=== PATIENT | female | born 1990 | race Caucasian/White ===

== ENCOUNTER → 2017-02-05 | Outpatient (REF) | payer OTHER ==
[~2017-02-05] MED LIST: ACET50TA PO; DOCU10ELUD PO; IBUP600T26 PO; MIREIUD IU; PRENTAB74 PO
== END ==
LOC: M LAB REF 14:27
PROVIDERS: ATTEND Surgery
DX: D17.1 Benign lipomatous neoplasm of skin and subcutaneous tissue of trunk (principal)

== ENCOUNTER 2017-04-10 13:43 | Outpatient (CLI) | payer OTHER ==
[~2017-04-10] VITALS: Ht 154.9 cm; Wt 67.1 kg
[2017-04-10] MEDS ORDERED: NS 1,000 ML IV ONE (14:00)
[2017-04-10] MEDS ORDERED: PROPOFOL 200 MG/20 ML VIAL As Ordered ONE ×2 (14:20→14:22)
[2017-04-10] MEDS ORDERED: LIDOCAINE 2% INJ 100 MG/5 ML SDV (FOR ANES.) As Ordered ONE (14:22)
--- NOTE | 2017-04-10 14:28 | ROOR ---
Patient Name: Celeste Young Procedure Date: 04/10/2017 2:10 PM Date of : 1990 Age: 26 Room: [facility] Gender: Female Note Status: Finalized Procedure: Upper GI endoscopy Indications: Epigastric abdominal pain, Generalized abdominal pain Providers: Yung FELDER MD Referring MD: 1. No Referring Physician 1. No Referring Physician, Admin. Requesting Provider: Medicines: Monitored Anesthesia Care Complications: No immediate complications. Procedure: Pre-Anesthesia Assessment: - The heart rate, respiratory rate, oxygen saturations, blood pressure, adequacy of pulmonary ventilation, and response to care were monitored throughout the procedure. The Endoscope was introduced through the mouth, and advanced to the second part of duodenum. The upper GI endoscopy was accomplished without difficulty. The patient tolerated the procedure well. Findings: The esophagus was normal. The stomach was normal. The examined duodenum was normal. Impression: - Normal esophagus. - Normal stomach. - Normal examined duodenum. - No specimens collected. Recommendation: - Observe patient's clinical course. - Continue present medications. Yung Felder MD Yung FELDER MD 04/10/2017 2:27:45 PM This report has been signed electronically. Number of Addenda: 0 Note Initiated On: 04/10/2017 2:10 PM Estimated Blood Loss: Estimated blood loss: none.
--- NOTE | 2017-04-10 14:46 | ROOR ---
Patient Name: Celeste Young Procedure Date: 04/10/2017 2:11 PM Date of : 1990 Age: 26 Room: [facility] Gender: Female Note Status: Finalized Procedure: Colonoscopy Indications: High risk colon cancer surveillance: Personal history of colonic polyps, Last colonoscopy: September 2013, Incidental abdominal pain noted Providers: uYng FELDER MD Referring MD: 1. No Referring Physician 1. No Referring Physician, Admin. Requesting Provider: Medicines: Monitored Anesthesia Care Complications: No immediate complications. Procedure: Pre-Anesthesia Assessment: - The heart rate, respiratory rate, oxygen saturations, blood pressure, adequacy of pulmonary ventilation, and response to care were monitored throughout the procedure. The Colonoscope was introduced through the anus and advanced to 5 cm into the ileum. The colonoscopy was performed without difficulty. The patient tolerated the procedure well. The quality of the bowel preparation was good. Findings: The perianal and digital rectal examinations were normal. A scar was found in the cecum. There was no evidence of the previous polyp. No residual polyp tissue was seen. The colon (entire examined portion) was redundant. The entire examined colon appeared normal on direct and retroflexion views. Impression: - Surgical scar in the cecum related to previous extended appendectomy. - The colon is a bit redundant, but otherwise is normal on direct and retroflexion views. - Small (likely insignificant) internal hemorrhoids noted. - No specimens collected. Recommendation: - Repeat colonoscopy in 5 years for surveillance based on personal history of previous adenomatous polyps. - Continue present medications. - Use fiber, for example Citrucel, Fibercon, Konsyl or Metamucil. Yung Felder MD Yung FELDER MD 04/10/2017 2:46:07 PM This report has been signed electronically. Number of Addenda: 0 Note Initiated On: 04/10/2017 2:11 PM Estimated Blood Loss: Estimated blood loss: none.
[2017-04-10 15:07] VITALS: BP 118/83
== END 2017-04-10 15:08 | disposition home or self-care (01) ==
LOC: M OPP 13:43
PROVIDERS: ATTEND Internal Medicine Gastroenterology
DX: R10.84 Generalized abdominal pain (principal); Z86.010 Personal history of colon polyps; Q43.8 Other specified congenital malformations of intestine; L90.5 Scar conditions and fibrosis of skin; K64.8 Other hemorrhoids; R10.13 Epigastric pain; J45.909 Unspecified asthma, uncomplicated; G43.909 Migraine, unspecified, not intractable, without status migrainosus; Z79.899 Other long term (current) drug therapy; Z80.0 Family history of malignant neoplasm of digestive organs; Z80.3 Family history of malignant neoplasm of breast; Z80.41 Family history of malignant neoplasm of ovary

== ENCOUNTER → 2018-09-10 | Outpatient (REF) | payer BC ==
[~2018-09-10] MED LIST changes: +MIRE1IUD IU; -MIREIUD IU
== END ==
LOC: M LAB REF 17:05
PROVIDERS: ATTEND Advanced Practice Midwife
DX: Z12.4 Encounter for screening for malignant neoplasm of cervix (principal)

== ENCOUNTER → 2019-04-08 | Outpatient (CLI) | payer BC ==
[~2019-04-08] MED LIST changes: -ACET50TA PO; -DOCU10ELUD PO; +DOCU5LIQ PO; +MAPA500T17 PO
--- NOTE | 2019-04-08 16:55 | REP ---
The the patient had renal removed enlarged but has not had a. Since. The studies performed transabdominal, endovaginal and Doppler ultrasound assessment. The bladder is adequately distended. The uterus is anteverted and normal size measuring 7.8 x 3.9 x 3.6 cm. The endometrium is not thickened measuring five - 7 mm. Right ovary: The right ovary measures 3.9 x 2.0 by 3.1 cm and is normal size. There is a 2.8 x 1.5 x 2.4 cm right ovarian cyst. There is right ovarian vascular flow with the Doppler resistive index in the parenchymal arteries measuring 0.36. Left ovary: Left ovary measures 2.6 x 2.4 x 2.6 cm and is normal size. There is a 1.4 cm left ovarian follicle. There is vascular flow with the Doppler resistive index in the parenchymal arteries measuring 0.40. Impression: There is a 2.8 cm right ovarian cyst. There is a 1.4 cm left ovarian follicle. There is vascular flow in both ovaries. The uterus and endometrium are unremarkable. Electronically Signed by Joe Yu MD 04/08/2019 04:47 P
== END ==
LOC: M RAD 15:46
PROVIDERS: ATTEND Advanced Practice Midwife
DX: N91.1 Secondary amenorrhea (principal)

== ENCOUNTER → 2019-04-20 | Outpatient (CLI) | payer BC ==
[2019-04-20 12:54] LABS: HCG, SERUM QUALITATIVE NEGATIVE (NEGATIVE)
[2019-04-20 13:05] LABS: CORTISOL AM 10.4 UG/DL (4.3-22.4); FOLLICLE STIMULATING HORMONE 7.5 mIU/mL; FREE T4 0.93 NG/DL (0.76-1.46); LUTEINIZING HORMONE 2.7 mIU/mL; PROGESTERONE 0.73 NG/ML; PROLACTIN 14.7 NG/ML
[2019-04-23 08:39] LABS: 17 HYDROXY PROGESTERONE 23 ng/dL (.); TESTOSTERONE FREE (DIRECT) 1.6 pg/mL (0.0-4.2)
== END ==
LOC: M LRY 08:22
PROVIDERS: ATTEND Advanced Practice Midwife
DX: N91.1 Secondary amenorrhea (principal)

== ENCOUNTER → 2019-05-17 | Outpatient (REF) | payer BC | LOC: M SFHCLERA 11:48 | PROVIDERS: ATTEND Physician Assistant | DX: J02.9 Acute pharyngitis, unspecified (principal) ==

== ENCOUNTER → 2019-11-25 | Outpatient (CLI) | payer BC ==
[2019-11-25 12:17] LABS: FREE T4 0.9 NG/DL (0.76-1.46); THYROID STIMULATING HORMONE 2.96 uIU/ML (0.358-3.740)
== END ==
LOC: M LAB 11:02
PROVIDERS: ATTEND Internal Medicine Gastroenterology
DX: K58.2 Mixed irritable bowel syndrome (principal)

== ENCOUNTER → 2019-12-09 | Outpatient (CLI) | payer BC ==
[~2019-12-09] MED LIST changes: +E-Z-PAQUE 96% w/w SUSP 176GM BTL As Ordered ONE
--- NOTE | 2019-12-13 17:43 | REP ---
Small bowel follow-through The procedure was performed under the direct supervision of Dr. Choudhary. The images were reviewed with Dr. Choudhary. The print press operator film shows no organomegaly or pathological masses. The intestinal gas pattern is nonspecific. There are bowel sutures noted in the right mid abdomen. Liquid barium was administered and the barium column was followed through the small bowel to the level of the terminal ileum. Small bowel transit time is approximately 1 hour . During fluoroscopy gentle palpation shows all loops are freely movable and pliable. There are no fixed or angulated loops. The small bowel mucosal pattern is normal in course and caliber. There is no transition to suggest a partial small bowel obstruction. Spot filming of the terminal ileum shows it to be unremarkable. Impression: Small bowel follow-through examination within normal limits. 0.6 minutes of fluoro time was utilized for this procedure. Electronically Signed by VIELKA Payne 12/09/2019 03:12 P Electronically Signed by Joe Choudhary MD 12/13/2019 05:34 P
== END ==
LOC: M RAD 08:52
PROVIDERS: ATTEND Internal Medicine Gastroenterology
DX: K58.2 Mixed irritable bowel syndrome (principal)

== ENCOUNTER → 2020-04-18 | Outpatient (CLI) | payer BC ==
[~2020-04-18] MED LIST changes: -E-Z-PAQUE 96% w/w SUSP 176GM BTL As Ordered ONE; +PHEN-239 PO; +SUMA50TA2 PO; +TOPI50TA9 PO
== END ==
LOC: M LABSMTC 13:12
PROVIDERS: ATTEND Anesthesiology
DX: Z01.812 Encounter for preprocedural laboratory examination (principal); Z20.828 Contact with and (suspected) exposure to other viral communicable diseases
CPT/HCPCS: C9803; U0003

== ENCOUNTER 2020-04-23 13:32 | Day surgery (SDC) | payer BC ==
[~2020-04-23] VITALS: Ht 154.9 cm; Wt 67.1 kg
[2020-04-23] MEDS ORDERED: NS 1,000 ML IV ONE (14:30)
[2020-04-23] MEDS ORDERED: LIDOCAINE 2% 100MG/5ML SDV (FOR ANES.) As Ordered ONE (14:53)
[2020-04-23] MEDS ORDERED: propofoL 500 MG/50 ML VIAL As Ordered ONE (14:54)
[2020-04-23] MEDS ORDERED: fentaNYL 100 MCG/2 ML INJECTION (J3010) As Ordered ONE (14:54)
--- NOTE | 2020-04-23 15:25 | ROOR ---
Patient Name: Celeste Young Procedure Date: 04/23/2020 2:59 PM Date of : 1990 Age: 29 Room: [facility] Gender: Female Note Status: Finalized Procedure: Upper GI endoscopy Indications: Abdominal pain Providers: Yung FELDER MD Referring MD: Keke Israel Requesting Provider: Medicines: Monitored Anesthesia Care Complications: No immediate complications. Procedure: Pre-Anesthesia Assessment: - The heart rate, respiratory rate, oxygen saturations, blood pressure, adequacy of pulmonary ventilation, and response to care were monitored throughout the procedure. The Endoscope was introduced through the mouth, and advanced to the second part of duodenum. The upper GI endoscopy was accomplished without difficulty. The patient tolerated the procedure well. Findings: The esophagus was normal. The stomach was normal. The examined duodenum was normal. Biopsies for histology were taken with a cold forceps in the second portion of the duodenum for evaluation of celiac disease. Biopsies were taken with a cold forceps in the gastric antrum for Helicobacter pylori testing. Impression: - Normal esophagus. - Normal stomach. - Normal examined duodenum. - Biopsies were taken with a cold forceps for evaluation of celiac disease. - Biopsies were taken with a cold forceps for Helicobacter pylori testing. Recommendation: - Observe patient's clinical course. - Telephone endoscopist for pathology results in 2 weeks. Yung Felder MD Yung FELDER MD 04/23/2020 3:24:52 PM Electronically signed by Yung FELDER MD Number of Addenda: 0 Note Initiated On: 04/23/2020 2:59 PM Estimated Blood Loss: Estimated blood loss: none.
--- NOTE | 2020-04-23 15:38 | ROOR ---
Patient Name: Celeste Young Procedure Date: 04/23/2020 3:03 PM Date of : 1990 Age: 29 Room: [facility] Gender: Female Note Status: Finalized Procedure: Colonoscopy Indications: Suspected irritable bowel syndrome, Mixed irritable bowel syndrome Providers: Yung FELDER MD Referring MD: Keke Israel Requesting Provider: Medicines: Monitored Anesthesia Care Complications: No immediate complications. Procedure: Pre-Anesthesia Assessment: - The heart rate, respiratory rate, oxygen saturations, blood pressure, adequacy of pulmonary ventilation, and response to care were monitored throughout the procedure. The Colonoscope was introduced through the anus and advanced to 15 cm into the ileum. The colonoscopy was performed without difficulty. The patient tolerated the procedure well. The quality of the bowel preparation was good. Findings: The perianal and digital rectal examinations were normal. The terminal ileum appeared normal. The colon (entire examined portion) appeared normal. Small Internal Hemorrhoids. Biopsies for histology were taken with a cold forceps from the entire colon for evaluation of microscopic colitis. Impression: - The examined portion of the ileum was normal. - The entire colon is normal. - Small Internal Hemorrhoids. - Biopsies were taken with a cold forceps from the entire colon for evaluation of microscopic colitis. - (Irritable Bowel Syndrome/IBS suspected.) Recommendation: - Use fiber, for example Citrucel, Fibercon, Konsyl or Metamucil. - Continue present medications. - Telephone endoscopist for pathology results in 2 weeks. Yung Felder MD Yung FELDER MD 04/23/2020 3:37:10 PM Electronically signed by Yung FELDER MD Number of Addenda: 0 Note Initiated On: 04/23/2020 3:03 PM Estimated Blood Loss: Estimated blood loss: none.
[2020-04-23 16:03] VITALS: BP 140/90
== END 2020-04-23 16:05 | disposition home or self-care (01) ==
LOC: M OPP 13:32
PROVIDERS: ATTEND Internal Medicine Gastroenterology
DX: K58.2 Mixed irritable bowel syndrome (principal); R10.9 Unspecified abdominal pain; R19.4 Change in bowel habit; K64.8 Other hemorrhoids; Z80.0 Family history of malignant neoplasm of digestive organs; Z79.899 Other long term (current) drug therapy; Z79.3 Long term (current) use of hormonal contraceptives
CPT/HCPCS: 43239; 45380; 88305; J3010

== ENCOUNTER → 2021-06-27 | Outpatient (CLI) | payer BC ==
[2021-06-27 17:54] LABS: ALT/SGPT 47 U/L (12-78); BILIRUBIN,TOTAL 0.4 MG/DL (0.2-1.0); GLOMERULAR FILTRATION RATE > 60.0 (>60); LDH LACTATE DEHYDROGENASE 163 U/L (84-246); URIC ACID 2.6 MG/DL (2.6-6.0)
[2021-06-27 17:57] LABS: HEMATOCRIT 36.8 % (36.0-47.0); HEMOGLOBIN 12.1 g/dl (12.0-15.5); MEAN CORPUSCULAR HEMOGLOBIN 29.2 pg (27.0-33.0); MEAN CORPUSCULAR HGB CONC 32.9 g/dl (32.0-36.5); MEAN CORPUSCULAR VOLUME 88.9 fl (80.0-96.0); PLATELET COUNT, AUTOMATED 308 10^3/uL (150-450); RED BLOOD COUNT 4.14 10^6/uL (4.00-5.40); WHITE BLOOD COUNT 8.3 10^3/uL (4.0-10.0)
[2021-06-27 18:44] LABS: HEPATITIS C VIRUS ABY INDEX 0.1 INDEX (<0.8); HIV 1&2 SCREEN CENTAUR NEGATIVE (NEGATIVE)
[2021-06-27 20:30] LABS: GC DNA AMPLIFICATION NEGATIVE (NEGATIVE)
== END ==
LOC: M PLALAB 14:55
PROVIDERS: ATTEND Advanced Practice Midwife
DX: Z34.91 Encounter for supervision of normal pregnancy, unspecified, first trimester (principal)

== ENCOUNTER → 2021-08-26 | Outpatient (CLI) | payer BC | LOC: M WHC 15:02 | PROVIDERS: ATTEND Advanced Practice Midwife | DX: Z34.81 Encounter for supervision of other normal pregnancy, first trimester (principal); Z3A.13 13 weeks gestation of pregnancy ==

== ENCOUNTER → 2021-09-18 | Outpatient (CLI) | payer BC | LOC: M WHC 15:01 | PROVIDERS: ATTEND Advanced Practice Midwife | DX: Z34.92 Encounter for supervision of normal pregnancy, unspecified, second trimester (principal); Z3A.22 22 weeks gestation of pregnancy ==

== ENCOUNTER → 2021-10-24 | Outpatient (CLI) | payer BC ==
[2021-10-24 13:11] LABS: HEMATOCRIT 33.7 % (36.0-47.0); HEMOGLOBIN 11.4 g/dl (12.0-15.5); MEAN CORPUSCULAR HEMOGLOBIN 30.4 pg (27.0-33.0); MEAN CORPUSCULAR HGB CONC 33.8 g/dl (32.0-36.5); MEAN CORPUSCULAR VOLUME 89.9 fl (80.0-96.0); PLATELET COUNT, AUTOMATED 311 10^3/uL (150-450); RED BLOOD COUNT 3.75 10^6/uL (4.00-5.40); WHITE BLOOD COUNT 10.8 10^3/uL (4.0-10.0)
== END ==
LOC: M PLALAB 09:31
PROVIDERS: ATTEND Advanced Practice Midwife
DX: Z36.89 Encounter for other specified antenatal screening (principal)

== ENCOUNTER → 2021-11-13 | Outpatient (CLI) | payer BC | LOC: M LAB 08:33 | PROVIDERS: ATTEND Advanced Practice Midwife | DX: O99.810 Abnormal glucose complicating pregnancy (principal); Z3A.00 Weeks of gestation of pregnancy not specified ==

== ENCOUNTER → 2021-12-20 | Outpatient (CLI) | payer BC | LOC: M WHC 12:48 | PROVIDERS: ATTEND Advanced Practice Midwife | DX: O26.843 Uterine size-date discrepancy, third trimester (principal); Z3A.35 35 weeks gestation of pregnancy ==

== ENCOUNTER → 2021-12-24 | Outpatient (REF) | payer BC | LOC: M SFHCWAGY 17:03 | PROVIDERS: ATTEND Obstetrics & Gynecology | DX: Z87.59 Personal history of other complications of pregnancy, childbirth and the puerperium (principal) ==

== ENCOUNTER → 2024-04-27 | Outpatient (CLI) | payer BC ==
[~2024-04-27] MED LIST changes: +ACET-683 PO; +IBUP80TA PO; +MULTTAB20 PO; +TOPI-21 PO; -TOPI50TA9 PO
[2024-04-27 18:45] LABS: BASO % 0.4 % (0.0-1.0); EOS # 0.3 10^3/uL (0.0-0.5); EOS % 4.1 % (0.0-3.0); HEMATOCRIT 39.3 % (36.0-47.0); HEMOGLOBIN 12.4 g/dl (12.0-15.5); LYMPH # 2.2 10^3/uL (1.5-5.0); LYMPH % 31.1 % (24.0-44.0); MEAN CORPUSCULAR HEMOGLOBIN 28.8 pg (27.0-33.0); MEAN CORPUSCULAR HGB CONC 31.6 g/dl (32.0-36.5); MEAN CORPUSCULAR VOLUME 91.4 fl (80.0-96.0); MONO # 0.4 10^3/uL (0.0-0.8); MONO % 5.1 % (2.0-8.0); NEUTROPHILS # 4.1 10^3/uL (1.5-8.5); NEUTROPHILS % 58.9 % (36.0-66.0); PLATELET COUNT, AUTOMATED 351 10^3/uL (150-450)
[2024-04-27 18:54] LABS: ERYTHROCYTE SEDIMENTATION RATE 17 mm/hr (0-20)
[2024-04-27 19:20] LABS: URIC ACID 3.8 MG/DL (3.1-7.8)
[2024-04-27 19:22] LABS: C REACTIVE PROTEIN QUANTITATIV < 0.40 MG/DL (<1.0); RHEUMATOID FACTOR QUANT < 3.5 IU/ML (<14)
[2024-04-27 19:23] LABS: ALBUMIN 3.6 G/DL (3.2-5.2); ALKALINE PHOSPHATASE 101 U/L (35-104); ALT/SGPT 57 U/L (7.0-40); AST/SGOT 22 U/L (<34); BILIRUBIN,TOTAL 0.5 MG/DL (0.3-1.2); BLOOD UREA NITROGEN 17 MG/DL (9-23); CALCIUM LEVEL 9.1 MG/DL (8.5-10.1); CARBON DIOXIDE LEVEL 28 MMOL/L (20-31); CHLORIDE LEVEL 107 MMOL/L (98-107); CHOLESTEROL LEVEL 200 MG/DL (<200); CHOLESTEROL RISK RATIO 3.09 (<5); CREATININE FOR GFR 0.61 MG/DL (0.55-1.30); GLOMERULAR FILTRATION RATE > 60.0 (>60); GLUCOSE, FASTING 86 MG/DL (60-100); HDL CHOLESTEROL 64.7 MG/DL (>40); LDL CHOLESTEROL 117.5 MG/DL (<100); NON-HDL-C 135.3 MG/DL; POTASSIUM SERUM 4.6 MMOL/L (3.5-5.1); SODIUM LEVEL 139 MMOL/L (136-145); TOTAL PROTEIN 6.8 G/DL (5.7-8.2); TRIGLYCERIDES LEVEL 89 MG/DL (<150)
[2024-04-29 14:07] LABS: ANA SCREEN, IFA NEGATIVE (NEGATIVE)
[2024-04-30 01:41] LABS: CYCLIC CITRULLINATED PEPTIDE < 16 UNITS (<20)
== END ==
LOC: M LRY 13:12
PROVIDERS: ATTEND Physician Assistant
DX: E66.9 Obesity, unspecified (principal)

== ENCOUNTER → 2024-05-31 | Outpatient (CLI) | payer BC ==
[2024-05-31 18:42] LABS: IRON (FE) 61 UG/DL (50-170); PERCENT SATURATION 17.4 % (13.2-45.0); TOTAL IRON BINDING CAPACITY 351 UG/DL (250-425)
[2024-05-31 18:44] LABS: FERRITIN 22.3 NG/ML (7.3-270.7); THYROID STIMULATING HORMONE 4.608 uIU/ML (0.55-4.78)
[2024-05-31 18:45] LABS: VITAMIN B12 LEVEL 712 PG/ML (211-911)
[2024-05-31 19:02] LABS: HEPATITIS B SURFACE ANTIGEN NEGATIVE (NEGATIVE)
[2024-05-31 19:22] LABS: HEPATITIS B CORE ANTIBODY IGM NEGATIVE (NEGATIVE)
[2024-05-31 19:23] LABS: HEPATITIS C VIRUS ABY INDEX 0.17 INDEX (<0.8)
== END ==
LOC: M RAD 17:25
PROVIDERS: ATTEND Physician Assistant
DX: M25.541 Pain in joints of right hand (principal); M25.542 Pain in joints of left hand; R53.83 Other fatigue

== ENCOUNTER → 2024-07-05 | Outpatient (CLI) | payer BC | LOC: M RAD 08:45 | PROVIDERS: ATTEND Physician Assistant | DX: R74.01 Elevation of levels of liver transaminase levels (principal) ==

== ENCOUNTER → 2024-08-26 | Outpatient (CLI) | payer BC | LOC: M RAD 16:14 | PROVIDERS: ATTEND Physician Assistant | DX: E04.9 Nontoxic goiter, unspecified (principal) ==

== ENCOUNTER → 2024-10-04 | Outpatient (CLI) | payer BC ==
[2024-10-04 14:01] LABS: HEMATOCRIT 37.6 % (36.0-47.0); HEMOGLOBIN 12.5 g/dl (12.0-15.5); MEAN CORPUSCULAR HEMOGLOBIN 28.4 pg (27.0-33.0); MEAN CORPUSCULAR HGB CONC 33.2 g/dl (32.0-36.5); MEAN CORPUSCULAR VOLUME 85.5 fl (80.0-96.0); PLATELET COUNT, AUTOMATED 412 10^3/uL (150-450); WHITE BLOOD COUNT 10.2 10^3/uL (4.0-10.0)
[2024-10-04 14:17] LABS: FREE T4 1.01 NG/DL (0.89-1.76); THYROID STIMULATING HORMONE 3.797 uIU/ML (0.55-4.78)
[2024-10-04 14:37] LABS: TOTAL PROTEIN,RANDOM URINE 13.9 MG/DL (0.0-14.0)
[2024-10-04 14:42] LABS: CREATININE,RANDOM URINE 159.9 MG/DL
[2024-10-04 14:47] LABS: HIV 1&2 SCREEN NEGATIVE (NEGATIVE)
[2024-10-04 14:56] LABS: HEPATITIS C VIRUS ABY INDEX 0.02 INDEX (<0.8)
[2024-10-04 17:58] LABS: Trichomonas vaginalis (AMP) NOT DETECTED (NEGATIVE)
[2024-10-04 18:21] LABS: GC DNA AMPLIFICATION NEGATIVE (NEGATIVE)
== END ==
LOC: M PLALAB 09:32
PROVIDERS: ATTEND Obstetrics & Gynecology
DX: O09.291 Supervision of pregnancy with other poor reproductive or obstetric history, first trimester (principal); Z3A.00 Weeks of gestation of pregnancy not specified

== ENCOUNTER → 2024-10-18 | Outpatient (CLI) | payer BC | LOC: M RAD 12:36 | PROVIDERS: ATTEND Obstetrics & Gynecology | DX: O36.80X0 Pregnancy with inconclusive fetal viability, not applicable or unspecified (principal) ==

== ENCOUNTER → 2025-03-09 | Outpatient (REF) | payer BC ==
[~2025-03-09] MED LIST changes: -PHEN-239 PO; +PHEN37.511 PO
[2025-03-09 15:41] LABS: APPEARANCE, URINE CLOUDY (CLEAR); BACTERIA, URINE AUTO 1+ (NEGATIVE); BILIRUBIN, URINE AUTO NEGATIVE (NEGATIVE); BLOOD, URINE BLOOD NEGATIVE (NEGATIVE); CALCIUM OXALATE CRYSTALS SMALL; GLUCOSE, URINE (UA) AUTO NEGATIVE (NEGATIVE); KETONE, URINE AUTO NEGATIVE (NEGATIVE); LEUKOCYTE ESTERASE, URINE AUTO NEGATIVE (NEGATIVE); MUCUS, URINE LARGE (NEGATIVE); NITRITE, URINE AUTO NEGATIVE (NEGATIVE); PROTEIN, URINE AUTO NEGATIVE (NEGATIVE); RBC, URINE AUTO 1 /HPF (0-3); SPECIFIC GRAVITY URINE AUTO 1.023 (1.002-1.035); SQUAMOUS EPITHELIAL CELL UR AU 1 /HPF (0-6); UROBILINOGEN, URINE AUTO 0.2 mg/dL (0.0-2.0); WBC, URINE AUTO 2 /HPF (0-3)
== END ==
LOC: M SFHCWAGY 15:00
PROVIDERS: ATTEND Obstetrics & Gynecology
DX: R30.0 Dysuria (principal)

== ENCOUNTER → 2025-03-10 | Outpatient (CLI) | payer BC ==
[2025-03-10 15:37] LABS: GLUCOSE CHALLENGE TEST 1 HOUR 181 MG/DL (LESS THAN 140)
[2025-03-10 15:41] LABS: PLATELET COUNT, AUTOMATED 375 10^3/uL (150-450)
[2025-03-10 16:13] LABS: HIV 1&2 SCREEN NEGATIVE (NEGATIVE)
[2025-03-10 16:21] LABS: HEPATITIS C VIRUS ABY INDEX < 0.02 INDEX (<0.8)
[2025-03-10 16:52] LABS: Trichomonas vaginalis (AMP) NOT DETECTED (NEGATIVE)
[2025-03-10 17:15] LABS: GC DNA AMPLIFICATION NEGATIVE (NEGATIVE)
== END ==
LOC: M PLALAB 11:39
PROVIDERS: ATTEND Advanced Practice Midwife
DX: Z34.82 Encounter for supervision of other normal pregnancy, second trimester (principal)

== ENCOUNTER → 2025-03-20 | Outpatient (CLI) | payer BC | LOC: M LAB 07:56 | PROVIDERS: ATTEND Specialist | DX: O99.810 Abnormal glucose complicating pregnancy (principal); Z3A.00 Weeks of gestation of pregnancy not specified ==

== ENCOUNTER → 2025-03-28 | Outpatient (CLI) | payer BC ==
[2025-03-28 15:25] LABS: ALT/SGPT 18 U/L (7.0-40); AST/SGOT 13 U/L (<34)
== END ==
LOC: M PLALAB 11:06
PROVIDERS: ATTEND Obstetrics & Gynecology
DX: O24.419 Gestational diabetes mellitus in pregnancy, unspecified control (principal); Z3A.00 Weeks of gestation of pregnancy not specified

== ENCOUNTER → 2025-03-29 | Outpatient (CLI) | payer BC | LOC: M WHC 11:09 | PROVIDERS: ATTEND Obstetrics & Gynecology | DX: O24.419 Gestational diabetes mellitus in pregnancy, unspecified control (principal); Z3A.30 30 weeks gestation of pregnancy ==

== ENCOUNTER → 2025-04-18 | Outpatient (CLI) | payer BC | LOC: M RAD 12:37 | PROVIDERS: ATTEND Student in an Organized Health Care Education/Training Program | DX: O36.8390 Maternal care for abnormalities of the fetal heart rate or rhythm, unspecified trimester, not applicable or unspecified (principal) ==

== ENCOUNTER → 2025-04-25 | Outpatient (CLI) | payer BC | LOC: M WHC 10:49 | PROVIDERS: ATTEND Obstetrics & Gynecology | DX: O24.415 Gestational diabetes mellitus in pregnancy, controlled by oral hypoglycemic drugs (principal); Z3A.34 34 weeks gestation of pregnancy ==

== ENCOUNTER → 2025-05-02 | Outpatient (REF) | payer BC | LOC: M PLALAB 11:21 | PROVIDERS: ATTEND Obstetrics & Gynecology | DX: Z34.80 Encounter for supervision of other normal pregnancy, unspecified trimester (principal) ==